=== PATIENT | female | born 1950 | race Caucasian/White ===

== ENCOUNTER → 2017-06-26 | Outpatient (CLI) | payer OTHER, MEDICARE | LOC: FIMAGING 08:35 | PROVIDERS: ATTEND Physician Assistant Surgical | DX: Z98.1 Arthrodesis status (principal); M43.12 Spondylolisthesis, cervical region ==

== ENCOUNTER → 2019-01-13 | Outpatient (CLI) | payer OTHER, MEDICARE | LOC: FIMAGING 07:11 | PROVIDERS: ATTEND Physician Assistant Surgical | DX: M47.892 Other spondylosis, cervical region (principal); M43.22 Fusion of spine, cervical region ==

== ENCOUNTER 2019-01-27 18:29 | Emergency (ER) | payer OTHER, MEDICARE ==
--- NOTE | 2019-01-27 19:28 | EDPHY ---
H & P Time Seen by Provider: 01/27/19 19:08 HPI/ROS: CHIEF COMPLAINT: Headache HISTORY OF PRESENT ILLNESS: Patient is a 68-year-old female with a history of migraine headaches and chronic neck pain who presents to the emergency department with increasing headache after having a CT myelogram today. Patient states that she received a contest. When he tilted the table "somewhat went into my brain."She developed an increased headache. She took a tramadol when she returned home which mildly improved her headache because it had significant nausea. Patient denies any focal weakness or numbness. No fevers or chills. No visual change. REVIEW OF SYSTEMS: 10 systems were reveiwed and are negative with the exception of the elements mentioned in the history of present illness. Past Medical/Surgical History: Includes headache, IBS, GI issues, thyroid disease Smoking Status: Never smoked Physical Exam: Vitals noted GENERAL: Well-appearing, in no acute distress, alert. HEENT: Eyes normal to inspection, normal pharynx, no signs of dehydration. NECK: Normal, supple. RESPIRATORY: Clear to auscultation bilaterally, no rales, rhonchi or wheezing. CVS: Regular rate and rhythm, no rubs, murmurs, or gallops. ABDOMEN: Soft, nontender, nondistended, no organomegaly. BACK: Normal to inspection, no CVA tenderness. SKIN: Normal color, no rash, warm, dry. No pallor. EXTREMITIES: No pedal edema, no calf tenderness, no Homans sign or cords, no joint swelling. NEURO/PSYCH: Higher functions: Alert and Oriented x3. Normal speech and cognition. Normal mood and affect. Cranial nerves: Normal as tested. Cerebellar: Normal as tested. Good finger to nose, good [id number], normal gait. Peripheral exam: Normal motor exam. Normal sensation. Normal reflexes. Constitutional: Initial Vital Signs Temperature (C) 36.4 C 01/27/19 18:35 Heart Rate 74 01/27/19 18:35 Respiratory Rate 18 01/27/19 18:35 Blood Pressure 136/73 H 01/27/19 18:35 O2 Sat (%) 99 01/27/19 18:35 O2 Delivery Mode Room Air Allergies/Adverse Reactions: pneumococcal 7-valent conjugate to [From Prevnar (PF)] Allergy (Severe, Verified 01/27/19 18:35) Swelling/neck,face,throat adhesive Allergy (Verified 01/27/19 18:35) aspirin Allergy (Verified 01/27/19 18:35) baclofen Allergy (Verified 01/27/19 18:35) doxycycline Allergy (Verified 01/27/19 18:35) Tingling of mouth/throat gabapentin [From Neurontin] Allergy (Verified 01/27/19 18:35) levofloxacin [From Levaquin] Allergy (Verified 01/27/19 18:35) metoclopramide HCl [From Reglan] Allergy (Verified 01/27/19 18:35) oxycodone HCl [From Percocet] Allergy (Verified 01/27/19 18:35) pregabalin [From Lyrica] Allergy (Verified 01/27/19 18:35) promethazine [From Phenergan] Allergy (Verified 01/27/19 18:35) Other-Enter Comments Sulfa (Sulfonamide Antibiotics) Allergy (Verified 01/27/19 18:35) Home Medications: Medication Instructions Recorded Amitriptyline HCl [Elavil 10 mg 10 mg PO HS PRN 06/10/15 (*)] Bethanechol [Urecholine (*)] 25 mg PO ACHS 06/10/15 Cholecalciferol Vit D3 [Vitamin D3 2,000 units PO DAILY 06/10/15 2000 units] Dicyclomine [Bentyl 10 MG (*)] 20 mg PO Q6 PRN 06/10/15 Estrogens,Conjugated [Premarin 0.5 ubaldo VG Q3D 06/10/15 Vaginal (*)] Glucosamine/Chondr Ro A Sod 1 each PO DAILY 06/10/15 [Glucosamine-Chondroitin Cap] Levothyroxine Sodium 25 mcg PO DAILY06 06/10/15 Ondansetron Odt [Zofran Odt 4 mg 8 mg PO Q4 PRN 06/10/15 (*)] Polyethylene Glycol 3350 [Miralax 8.5 gm PO DAILY 06/10/15 17 gm (*)] Ranitidine HCl [Zantac] 300 mg PO TID 06/10/15 Sucralfate [Carafate 1 GM (*)] 1 gm PO DAILY PRN 06/10/15 Tramadol HCl 50 mg PO Q6 06/10/15 Vitamin B Complex [B Complex] 1 each PO DAILY 06/10/15 Amox-Clav 875-125 mg Tablet 2 tab PO 01/17/19 Ferosul 325 mg PO DAILY 01/17/19 Medical Decision Making ED Course/Re-evaluation: In the emergency department discussed possible etiologies with the patient. I answered all her questions. IV was placed. Patient was given fentanyl 50 mcg IV and Toradol 15 mg IV for pain. She is given Zofran 4 mg IV for nausea. I discussed the case with Dr. Dayton Chang. He felt the patient did not need further imaging. He felt pain control was more appropriate. I discussed case with Dr. Caal from Neurosurgery. He felt the patient should be treated symptomatically. 2100: I rechecked the patient. She stated "I am feeling so much better."She has minimal headache. She has no focal deficits on repeat exam. Patient was given warnings prior to leaving. She will return with worsening symptoms. She was given a take-home pack of Clinton as well as Zofran. The patient states she has tolerated Clinton in the past Differential Diagnosis: My differential includes but is not limited to headache, migraine, dissection, meningitis - Data Points Medications Given: Discontinued Medications Dexamethasone (Decadron Injection) 10 mg IVP EDNOW ONE Stop: 01/27/19 20:19 Last Admin: 01/27/19 20:21 Dose: 10 mg Fentanyl (Sublimaze) 50 mcg IVP EDNOW ONE Stop: 01/27/19 20:19 Last Admin: 01/27/19 20:21 Dose: 50 mcg Ketorolac Tromethamine (Toradol) 15 mg IVP EDNOW ONE Stop: 01/27/19 20:19 Last Admin: 01/27/19 20:22 Dose: 15 mg Ondansetron HCl (Zofran) 4 mg IVP EDNOW ONE Stop: 01/27/19 20:19 Last Admin: 01/27/19 20:21 Dose: 4 mg Departure - Departure Disposition: Home, Routine, Self-Care Clinical Impression: Headache Qualifiers: Headache type: unspecified Headache chronicity pattern: acute headache Intractability: not intractable Qualified Code(s): R51 - Headache Condition: Fair Instructions: Acute Headache (ED) Additional Instructions: Return with increasing pain, vomiting, fever or any other concerns. Referrals: Asha,Messi W, PA [Primary Care Provider] - 5-7 days, call for appt.
[2019-01-27] MEDS ORDERED: fentaNYL 100 MCG/2 ML INJ IVP ONE (20:18)
[2019-01-27] MEDS ORDERED: ONDANSETRON 4 MG/2 ML VIAL IVP ONE (20:18)
[2019-01-27] MEDS ORDERED: KETOROLAC 15 MG/1 ML SDV IVP ONE (20:18)
[2019-01-27] MEDS ORDERED: DEXAMETHASONE 10 MG/ML VIAL IVP ONE (20:18)
[2019-01-27 20:52] VITALS: BP 119/75
[2019-01-27] MEDS ORDERED: ONDANSETRON 4MG PREPACK#2 BTL TAKEHOME ONE (21:01)
[2019-01-27] MEDS ORDERED: HYDROCOD/APAP 5/325 PREPACK#6 BTL TAKEHOME ONE (21:01)
== END 2019-01-27 21:12 | disposition home or self-care (01) ==
DX: R51 Headache (principal); E07.9 Disorder of thyroid, unspecified; Z86.69 Personal history of other diseases of the nervous system and sense organs
CPT/HCPCS: 96374; 96375; 99284; J1100; J1885; J2405; J3010

== ENCOUNTER → 2019-01-27 | Outpatient (CLI) | payer OTHER, MEDICARE ==
[~2019-01-27] MED LIST: DIAZEPAM 10 MG TAB PO ONE; IOPAMIDOL (ISOVUE-M 300) 15 ML VIAL ONE; LIDOCAINE 1% 300 MG/30 ML SDV ONE
[2019-01-27 08:36] LABS: INR 0.92 (0.83-1.16)
== END ==
LOC: FIMAGING 07:47
PROVIDERS: ATTEND Physician Assistant Surgical
PROC: B02BYZZ Computerized Tomography (CT Scan) of Spinal Cord using Other Contrast (ICD-10-PCS; principal; 2019-01-27)
DX: M50.320 Other cervical disc degeneration, mid-cervical region, unspecified level (principal)
CPT/HCPCS: 62302; 72126; 72240; Q9967

== ENCOUNTER 2019-01-28 22:41 | Inpatient (IN) | payer OTHER, MEDICARE ==
[2019-01-28] MEDS ORDERED: fentaNYL 100 MCG/2 ML INJ IVP ONE (23:12)
[2019-01-28] MEDS ORDERED: NS 500 ML IV ONE (23:12)
[2019-01-28] MEDS ORDERED: KETOROLAC 15 MG/1 ML SDV IVP ONE (23:12)
--- NOTE | 2019-01-28 23:12 | EDPHY ---
H & P Stated Complaint: PERALTA and hearing loss Time Seen by Provider: 01/28/19 22:51 HPI/ROS: CHIEF COMPLAINT: Continued headache HISTORY OF PRESENT ILLNESS: 68-year-old female underwent CT myelogram of the cervical spine yesterday for evaluation of chronic neck pain, subsequently seen in the emergency department post procedure, treated symptomatically and noted improvement symptoms, states that upon leaving the emergency department her symptoms returned. She does note a postural element to her headache, better laying flat, or sitting upright. Denies: Neck pain, peripheral paresthesia, weakness, numbness, gait instability, slurred speech, major minor head or neck trauma or manipulation. REVIEW OF SYSTEMS: 10 systems reviewed and negative with the exception of the elements mentioned in the history of present illness PAST MEDICAL & SURGICAL HISTORY: Chronic neck pain. Recent CT myelogram. SOCIAL HISTORY: Nonsmoker. No drug use. PHYSICAL EXAM (Prior to examination, patient consented to physical exam, hands were washed and my usual and customary physical exam procedures followed) 1) GENERAL: Well-developed, well-nourished, alert and oriented. Appears uncomfortable sitting upright, better when laying flat. 2) HEAD: Normocephalic, atraumatic 3) HEENT: Pupils equal, round, reactive to light bilaterally. Sclera anicteric. 4) NECK: Full range of motion, no meningeal signs. 5) LUNGS: Clear auscultation bilaterally, no wheezes, no rhonchi, no retractions. 6) HEART: Regular rate and rhythm, no murmur, no heave, no gallop. 7) ABDOMEN: No guarding, no rebound, no focal tenderness, 8) MUSCULOSKELETAL: Moving all extremities, no focal areas of tenderness, no obvious trauma. No peripheral edema or discoloration. 9) BACK: No obvious trauma, no visual or palpable abnormality. 10) SKIN: No rash, no petechiae. 11) Psychiatric: Patient is oriented X 3, there is no agitation. 12) NEURO: Awake, alert, and oriented to person, place and time. Answers questions appropriately. There were no obvious focal neurologic abnormalities. No cerebellar dysfunction. Normal steady gait. Upper and lower extremities bilaterally with strength 5 / 5, reflexes 2+. DIFFERENTIAL DIAGNOSIS: In no particular order, including but not limited to subarachnoid hemorrhage, post lumbar puncture headache, migraine headache, tension headache and infectious causes such as meningitis, pharyngitis and sinusitis.. - Personal History Current Tetanus/Diphtheria Vaccine: Yes Current Tetanus Diphtheria and Acellular Pertussis (TDAP): Yes - Medical/Surgical History Hx Asthma: No Hx Chronic Respiratory Disease: No Hx Diabetes: No Hx Cardiac Disease: No Hx Renal Disease: No Hx Cirrhosis: No Hx Alcoholism: No Hx HIV/AIDS: No Hx Splenectomy or Spleen Trauma: No Other PMH: IBS, GI issues, chronic PERALTA, numbness in fingers - Social History Smoking Status: Never smoked Constitutional: Initial Vital Signs Temperature (C) 36.4 C 01/28/19 22:44 Heart Rate 86 01/28/19 22:44 Respiratory Rate 16 01/28/19 22:44 Blood Pressure 126/93 H 01/28/19 22:44 O2 Sat (%) 99 01/28/19 22:44 O2 Delivery Mode Room Air Allergies/Adverse Reactions: pneumococcal 7-valent conjugate to [From Prevnar (PF)] Allergy (Severe, Verified 01/28/19 22:48) Swelling/neck,face,throat adhesive Allergy (Verified 01/29/19 08:08) aspirin Allergy (Verified 01/29/19 08:08) Hives baclofen Allergy (Verified 01/29/19 08:08) Unknown doxycycline Allergy (Verified 01/28/19 22:48) Tingling of mouth/throat gabapentin [From Neurontin] Allergy (Verified 01/29/19 08:08) Other-Enter Comments levofloxacin [From Levaquin] Allergy (Verified 01/29/19 08:08) Vomiting metoclopramide HCl [From Reglan] Allergy (Verified 01/29/19 08:08) Unknown oxycodone HCl [From Percocet] Allergy (Verified 01/29/19 08:08) Vomiting pregabalin [From Lyrica] Allergy (Verified 01/29/19 08:08) Vomiting promethazine [From Phenergan] Allergy (Verified 01/28/19 22:48) Other-Enter Comments Sulfa (Sulfonamide Antibiotics) Allergy (Verified 01/29/19 08:08) Unknown Home Medications: Medication Instructions Recorded Amitriptyline HCl [Elavil 10 mg 10 mg PO HS 06/10/15 (*)] Bethanechol [Urecholine (*)] 25 mg PO QID 06/10/15 Cholecalciferol Vit D3 [Vitamin D3 2,000 units PO DAILY 06/10/15 2000 units] Dicyclomine [Bentyl 10 MG (*)] 20 mg PO QID 06/10/15 Estrogens,Conjugated [Premarin 0.5 ubaldo VG Q3D@06/10/15 Vaginal (*)] Ondansetron Odt [Zofran Odt 4 mg 8 mg PO Q4-6PRN PRN 06/10/15 (*)] Polyethylene Glycol 3350 [Miralax 8.5 gm PO DAILY 06/10/15 17 gm (*)] Ranitidine HCl [Zantac] 300 mg PO BID@08,12 06/10/15 Sucralfate [Carafate 1 GM (*)] 1 gm PO DAILY PRN 06/10/15 Vitamin B Complex [B Complex] 1 each PO HS 06/10/15 Amoxicillin/Clavulanate Pot 875 mg PO AD 01/17/19 [Augmentin 875 MG TAB (*)] Ferrous Sulfate [Ferrous Sulf 325 325 mg PO DAILY 01/17/19 MG (*)] Calcium Carbonate [Tums 500MG (*)] 500 mg PO TIDMEAL PRN 01/29/19 Diclofenac Sodium 1% [Voltaren Gel 1 ubaldo TP QID PRN 01/29/19 (*)] Glucosamine/Chondroitin 1 each PO DAILY 01/29/19 [Glucosamine/Chondroitin (*)] Guar Gum [Benefiber/Nutrisource 1 each PO DAILY 01/29/19 Fiber (*)] Herbals/Supplements -Info Only 1 ea PO DAILY 01/29/19 Levothyroxine [Synthroid 25 mcg 25 mcg PO DAILY06 01/29/19 (*)] Loratadine 10 mg PO DAILY 01/29/19 Mag Hydrox/Aluminum Hyd/Simeth 5 ml PO QID PRN 01/29/19 [Antacid Suspension] Ranitidine HCl [Zantac] 150 mg PO BID@18,21 01/29/19 Simethicone [Phazyme] 180 mg PO BID PRN 01/29/19 Tears/Dextran 70/Hypromellose 1 drop EACHEYE Q2 PRN 01/29/19 [Natural Balance Tears (*)] diphenhydrAMINE [Benadryl 50 MG 50 mg PO BID PRN 01/29/19 (*)] traMADol [Ultram 50 mg (*)] 50 mg PO Q4 PRN #20 tab 01/30/19 Medical Decision Making ED Course/Re-evaluation: 11:20 p.m.: Consultation with [facility] who informs me at this time that the contrast material can cause significant pain some individuals. In addition given the postural component of her pain, he recommended admission to the hospital, keeping the patient flag, continued hydration with oral caffeine, if the patient was not improved by the morning to consider blood patching. The patient is agreeable with this noting that she has been "miserable" at home and has had no relief of symptoms with oral Zofran, oral oxycodone, oral tramadol. 11:24 p.m.: Consultation with hospitalist who agrees to admit patient - Data Points Laboratory Results: Laboratory Results 01/28/19 23:05 01/28/19 23:05 Medications Given: Discontinued Medications Amitriptyline HCl (Elavil) 10 mg PO HS [facility] Stop: 07/28/19 20:59 Last Admin: 01/29/19 21:48 Dose: 10 mg Bethanechol Chloride (Urecholine) 25 mg PO QID [facility] Stop: 07/28/19 15:59 Last Admin: 01/30/19 11:18 Dose: 25 mg Bethanechol Chloride (Urecholine) 25 mg PO ONCE ONE Stop: 01/29/19 13:16 Last Admin: 01/29/19 13:18 Dose: 25 mg Cetirizine HCl (Zyrtec) 10 mg PO DAILY [facility] Stop: 07/29/19 08:59 Last Admin: 01/30/19 08:38 Dose: 10 mg Cholecalciferol (Vitamin D) 2,000 units PO DAILY [facility] Stop: 07/29/19 08:59 Last Admin: 01/30/19 08:38 Dose: 2,000 units Dicyclomine HCl (Bentyl) 20 mg PO QID [facility] Stop: 07/28/19 15:59 Last Admin: 01/30/19 11:18 Dose: 20 mg Dicyclomine HCl (Bentyl) 20 mg PO ONCE ONE Stop: 01/29/19 13:16 Last Admin: 01/29/19 13:18 Dose: 20 mg Estrogens Conjugated (Premarin Vaginal) 1 gm VG Q3D@21 [facility] Stop: 07/28/19 20:59 Last Admin: 01/29/19 22:26 Dose: Not Given Famotidine (Pepcid) 20 mg PO BID@1800,2100 [facility] Stop: 07/28/19 17:59 Last Admin: 01/29/19 21:48 Dose: 20 mg Famotidine (Pepcid) 40 mg PO BID@0800,1200 [facility] Stop: 07/28/19 15:44 Last Admin: 01/30/19 10:22 Dose: 40 mg Fentanyl (Sublimaze) 50 mcg IVP EDNOW ONE Stop: 01/28/19 23:13 Last Admin: 01/28/19 23:20 Dose: 50 mcg Ferrous Sulfate (Ferrous Sulfate) 325 mg PO DAILY [facility] Stop: 07/29/19 08:59 Last Admin: 01/30/19 08:38 Dose: 325 mg Glucosamine/Chondroitin (Glucosamine/Chondroitin) 1 each PO DAILY [facility] Stop: 07/29/19 08:59 Last Admin: 01/30/19 08:38 Dose: 1 each Guar Gum (Benefiber/Nutrisource Fiber) 1 each PO DAILY [facility] Stop: 07/29/19 08:59 Last Admin: 01/30/19 08:39 Dose: 1 each Sodium Chloride (Ns) 500 mls @ 0 mls/hr IV ONCE ONE PRN Reason: Wide Open Stop: 01/28/19 23:13 Last Admin: 01/28/19 23:20 Dose: 500 mls Sodium Chloride (Ns) 1,000 mls @ 75 mls/hr IV CONT [facility] Stop: 07/27/19 23:29 Last Admin: 01/29/19 01:39 Dose: 1,000 mls Ketorolac Tromethamine (Toradol) 15 mg IVP EDNOW ONE Stop: 01/28/19 23:13 Last Admin: 01/28/19 23:21 Dose: 15 mg Ketorolac Tromethamine (Toradol) 15 mg IVP ONCE ONE Stop: 01/30/19 11:01 Last Admin: 01/30/19 11:16 Dose: 15 mg Levothyroxine Sodium (Synthroid) 25 mcg PO DAILY06 [facility] Stop: 07/29/19 05:59 Last Admin: 01/30/19 06:11 Dose: 25 mcg Lorazepam (Ativan) 0.5 mg PO Q8HRS PRN PRN Reason: Spasms Stop: 07/27/19 23:22 Last Admin: 01/29/19 01:37 Dose: 0.5 mg Ondansetron HCl (Zofran Odt) 4 mg PO Q4HRS PRN PRN Reason: Nausea/Vomiting, Use 1st Stop: 07/27/19 23:22 Last Admin: 01/29/19 09:30 Dose: 4 mg Ondansetron HCl (Zofran Odt) 8 mg PO Q4HRS PRN PRN Reason: Nausea/Vomiting, Use 1st Stop: 07/28/19 12:24 Last Admin: 01/30/19 04:29 Dose: 8 mg Polyethylene Glycol (Miralax) 8.5 gm PO DAILY [facility] Stop: 07/29/19 08:59 Last Admin: 01/30/19 08:39 Dose: 8.5 gm Tramadol HCl (Ultram) 50 mg PO Q6HRS PRN PRN Reason: Pain, Moderate Able to Take PO Stop: 07/28/19 01:46 Last Admin: 01/29/19 09:59 Dose: 50 mg Tramadol HCl (Ultram) 50 mg PO Q4 PRN PRN Reason: Pain, Moderate Stop: 07/28/19 12:24 Last Admin: 01/30/19 13:34 Dose: 50 mg Vitamin B Complex (Vitamin B Complex) 1 ea PO HS [facility] Stop: 07/28/19 20:59 Last Admin: 01/29/19 21:48 Dose: 1 ea Departure - Departure Disposition: [facility] Acute Clinical Impression: Post lumbar puncture headache Condition: Fair
[2019-01-28] MEDS ORDERED: LORazepam 0.5 MG TAB PO PRN (23:23)
[2019-01-28] MEDS ORDERED: ONDANSETRON 4 MG/2 ML VIAL IVP PRN (23:23)
[2019-01-28] MEDS ORDERED: ACETAMINOPHEN 325 MG TAB PO PRN (23:23)
[2019-01-28] MEDS ORDERED: NS 1,000 ML IV SCH (23:30)
[2019-01-28 23:33] LABS: PLATELET COUNT 323 10^3/uL (150-400)
[2019-01-28 23:44] LABS: INR 0.94 (0.83-1.16); PROTIME(PATIENT) 12.2 SEC (12.0-15.0)
[2019-01-29] MEDS: ONDANSETRON DISINTEGRATING 4 MG TAB PO PRN ×3 (01:37→16:59)
[2019-01-29] MEDS ORDERED: traMADol 50 MG TAB PO PRN (01:47)
--- NOTE | 2019-01-29 01:53 | PDGENHP ---
History and Physical - Chief Complaint Headache, nausea - History of Present Illness Source-patient by . EMR is reviewed case discussed with ED provider HPI-this is a very pleasant 68-year-old female with past medical history significant for IBS, migraine headaches cervical radiculopathy status post C4-5 , C5-6 ACDF, chronic pain presents emergency department this evening with unable to sit still headache. Yesterday patient underwent is CT myelogram to either evaluate for stenosis based on outpatient late films had been seen by neurosurgery at Dr. Whitten's office with complaints of per on the of pain, suboccipital headache and hand numbness. Patient did struggle slightly during the study as she reported she had some discomfort with infusion of the contrast. He did improve and was discharged home. She returned to the on 01/17 with complaint of significantly worsened headache. She was given some pain medications and antiemetic improvement of her symptoms. Over the course of the day agent reports that she continued to have nausea dry heaving. She also noted that she had denied hearing bilaterally. She denied any fevers or chills. No acute onset of numbness or tingling her arm hands. If increased pain she was having he will bowel symptoms with alternating diarrhea and constipation symptoms. Patient works that her symptoms are improved she is lying flat and worsened when she attempts to move. Additionally patient states that she has a history of multiple epidural steroid injections remotely. She did require a blood patch following one of these that she is aware of which did not help her symptoms which did eventually resolve after 6 months. History Information - Allergies/Home Medication List Allergies/Adverse Reactions: pneumococcal 7-valent conjugate to [From Prevnar (PF)] Allergy (Severe, Verified 01/28/19 22:48) Swelling/neck,face,throat adhesive Allergy (Verified 01/28/19 22:48) aspirin Allergy (Verified 01/28/19 22:48) baclofen Allergy (Verified 01/28/19 22:48) doxycycline Allergy (Verified 01/28/19 22:48) Tingling of mouth/throat gabapentin [From Neurontin] Allergy (Verified 01/28/19 22:48) levofloxacin [From Levaquin] Allergy (Verified 01/28/19 22:48) metoclopramide HCl [From Reglan] Allergy (Verified 01/28/19 22:48) oxycodone HCl [From Percocet] Allergy (Verified 01/28/19 22:48) pregabalin [From Lyrica] Allergy (Verified 01/28/19 22:48) promethazine [From Phenergan] Allergy (Verified 01/28/19 22:48) Other-Enter Comments Sulfa (Sulfonamide Antibiotics) Allergy (Verified 01/28/19 22:48) Home Medications: Amitriptyline HCl [Elavil 10 mg (*)] 10 mg PO HS PRN 06/10/15 [Last Taken 20:00] Bethanechol [Urecholine (*)] 25 mg PO ACHS 06/10/15 [Last Taken 06/16/15 20:00] Cholecalciferol Vit D3 [Vitamin D3 2000 units] 2,000 units PO DAILY 06/10/15 [ Last Taken 06/10/15] Dicyclomine [Bentyl 10 MG (*)] 20 mg PO Q6 PRN 06/10/15 [Last Taken 3 Days Ago ~ 06/14/15] Estrogens,Conjugated [Premarin Vaginal (*)] 0.5 ubaldo VG Q3D 06/10/15 [Last Taken 3 Days Ago ~06/14/15] Glucosamine/Chondr Ro A Sod [Glucosamine-Chondroitin Cap] 1 each PO DAILY [Last Taken 06/10/15] Levothyroxine Sodium 25 mcg PO DAILY06 06/10/15 [Last Taken 06/16/15 07:00] Ondansetron Odt [Zofran Odt 4 mg (*)] 8 mg PO Q4 PRN 06/10/15 [Last Taken ] Polyethylene Glycol 3350 [Miralax 17 gm (*)] 8.5 gm PO DAILY 06/10/15 [Last Taken 06/16/15 07:00] Ranitidine HCl [Zantac] 300 mg PO TID 06/10/15 [Last Taken 06/16/15 07:00] Sucralfate [Carafate 1 GM (*)] 1 gm PO DAILY PRN 06/10/15 [Last Taken 1 Week Ago ~06/10/15] Tramadol HCl 50 mg PO Q6 06/10/15 [Last Taken 06/16/15 07:00] Vitamin B Complex [B Complex] 1 each PO DAILY 06/10/15 [Last Taken 06/10/15] Amox-Clav 875-125 mg Tablet 2 tab PO 01/17/19 [Last Taken Unknown] Ferosul 325 mg PO DAILY 01/17/19 [Last Taken Unknown] I have personally reviewed and updated: family history, medical history, social history, surgical history - Past Medical History Additional medical history: IBS. Migraine headaches. Cervical radiculopathy. Chronic pain in neck and abdomen. History shingles. Constipation - Surgical History Additional surgical history: Ovarian cystectomy with appendectomy. Hysterectomy. Left lower rib removed. Bilateral knee scope arthroscopies. Bladder and rectal surgery. Vein stripping. Niessen fundoplication and a revision. Cholecystectomy. Bilateral tear duct surgery. Right breast biopsy. Left foot ORIF with removal of hardware. VALENTE x3. Cataract extraction with lens placement. Left thumb surgery. C4-5, C5-6 ACDF. Spine stimulator which is currently turned off per patient - Family History Additional family history: Mother-had cancer, thyroid and breast. Father-CHF - Social History Smoking Status: Never smoked Alcohol Use: None Drug Use: None Additional social history: Patient is and typically lives with her in [place]. They are currently staying with their son locally as her is recovering from pneumonia. Cor status-full. Patient reports that she has advanced directives in place. Review of Systems Review of Systems: ROS: 10pt was reviewed & negative except for what was stated in HPI & below Constitutional: Denies: chills, fever, weakness EENMT: Reports: no symptoms Cardiac: Reports: no symptoms Respiratory: Reports: no symptoms Gastrointestinal: Reports: abdominal pain (cramping), constipation, diarrhea, nausea. Denies: vomitting, abdominal distention Genitourinary: Reports: no symptoms Muscolosketal: Reports: no symptoms Skin: Reports: no symptoms Neurological: Reports: no symptoms, numbness (No current numbness but history of numbness tingling in right 3rd 4th and 5th finger.) Hematologic/Lymphatic: Reports: no symptoms Physical Exam Physical Exam: Selected Entries 01/28/19 22:44 Blood Pressure Automatic Method Heart Rate 86 Respiratory 16 Rate O2 Sat (%) 99 Temperature (C) 36.4 C Blood Pressure 126/93 H Mean Arterial 104 H Pressure (MAP) O2 Delivery Room Air Mode Temperature Oral Source Temp Pulse Resp BP Pulse Ox 36.4 C 84 16 119/65 94 01/29/19 00:25 01/29/19 00:25 01/29/19 00:25 01/29/19 00:25 01/29/19 00:25 Constitutional: no apparent distress, uncomfortable, other (NAD. Patient is lying very still on the bed. She does cradle her left forehead with her right hand intermittently. Son is at bedside.) Eyes: PERRL (Lens reflex appreciated bilaterally), anicteric sclera, EOMI, No scleral injection Ears, Nose, Mouth, Throat: moist mucous membranes, no oral mucosal ulcers, other (Patient reports difficulty with her hearing however she was able to hear me for the most part during the interview with me standing approximately 3-4 feet away.), No oral ulcer Cardiovascular: regular rate and rhythym, no murmur, rub, or gallop, pulses symmetric bilaterally, No systolic murmur, No edema Peripheral Pulses: 1+: dorsalis-pedis (R), dorsalis-pedis (L) Respiratory: no respiratory distress, no rales or rhonchi, clear to auscultation , No reduced air movement, No inspiratory crackles Gastrointestinal: normoactive bowel sounds, soft, non-tender abdomen, no palpable masses, No tenderness, No ascites, No guarding, No rebound, No distension Genitourinary: no bladder tenderness, No cantrell in urethra Skin: warm, normal color, no rashes or abrasions Musculoskeletal: generalized weakness (Patient lays still supine on the gurney.) , No pain with ROM Neurologic: AAOx3, sensation intact bilaterally, other (Grossly nonfocal exam. Patient does move all extremities while lying in bed.), No facial droop Psychiatric: interacting appropriately, not anxious, not encephalopathic, thought process linear, No depressed Lab Data & Imaging Review 01/28/19 23:05 01/28/19 23:05 WBC 7.83 10^3/uL (3.80-9.50) 01/28/19 23:05 RBC 4.18 10^6/uL (4.18-5.33) 01/28/19 23:05 Hgb 12.9 g/dL (12.6-16.3) 01/28/19 23:05 Hct 37.4 % (38.0-47.0) L 01/28/19 23:05 MCV 89.5 fL (81.5-99.8) 01/28/19 23:05 MCH 30.9 pg (27.9-34.1) 01/28/19 23:05 MCHC 34.5 g/dL (32.4-36.7) 01/28/19 23:05 RDW 13.0 % (11.5-15.2) 01/28/19 23:05 Plt Count 323 10^3/uL (150-400) 01/28/19 23:05 MPV 9.5 fL (8.7-11.7) 01/28/19 23:05 Neut % (Auto) 55.2 % (39.3-74.2) 01/28/19 23:05 Lymph % (Auto) 33.0 % (15.0-45.0) 01/28/19 23:05 [place] % (Auto) 10.0 % (4.5-13.0) 01/28/19 23:05 Eos % (Auto) 1.0 % (0.6-7.6) 01/28/19 23:05 Baso % (Auto) 0.5 % (0.3-1.7) 01/28/19 23:05 Nucleat RBC Rel Count 0.0 % (0.0-0.2) 01/28/19 23:05 Absolute Neuts (auto) 4.33 10^3/uL (1.70-6.50) 01/28/19 23:05 Absolute Lymphs (auto) 2.58 10^3/uL (1.00-3.00) 01/28/19 23:05 Absolute Monos (auto) 0.78 10^3/uL (0.30-0.80) 01/28/19 23:05 Absolute Eos (auto) 0.08 10^3/uL (0.03-0.40) 01/28/19 23:05 Absolute Basos (auto) 0.04 10^3/uL (0.02-0.10) 01/28/19 23:05 Absolute Nucleated RBC 0.00 10^3/uL (0-0.01) 01/28/19 23:05 Immature Gran % 0.3 % (0.0-1.1) 01/28/19 23:05 Immature Gran # 0.02 10^3/uL (0.00-0.10) 01/28/19 23:05 PT 12.2 SEC (12.0-15.0) 01/28/19 23:05 INR 0.94 (0.83-1.16) 01/28/19 23:05 APTT 28.8 SEC (23.0-38.0) 01/28/19 23:05 Sodium 134 mEq/L (135-145) L 01/28/19 23:05 Potassium 4.0 mEq/L (3.5-5.2) 01/28/19 23:05 Chloride 102 mEq/L (97-110) 01/28/19 23:05 Carbon Dioxide 22 mEq/l (22-31) 01/28/19 23:05 Anion Gap 10 mEq/L (6-14) 01/28/19 23:05 BUN 7 mg/dL (7-23) 01/28/19 23:05 Creatinine 0.8 mg/dL (0.6-1.0) 01/28/19 23:05 Estimated GFR > 60 01/28/19 23:05 Glucose 98 mg/dL (70-100) 01/28/19 23:05 Calcium 9.5 mg/dL (8.5-10.4) 01/28/19 23:05 Imaging Review: 01/27/2019 CT Myelogram of the Cervical Spine (With Intrathecal Contrast) (With Multiplanar Reconstructions) Clinical Indications: Evaluate for source of neck pain, right numbness. M43.22 fusion of spine, cervical region. M50.320 Other cervical disk degeneration, mid-cervical region, unspecified level. Technique: Thinly collimated multidetector helical CT imaging of the cervical spine was reviewed in multiple planes. Study performed after lumbar myelography. Multiplanar reconstructions reviewed on [employer] workstation and performed to better evaluate alignment. Dose reduction techniques were utilized. Findings: Myelogram contrast throughout the cervical subarachnoid space. No cervical compression fractures or destructive osseous lesions. Anterior cervical fusion plate and screws at C4, C5 and C6 with hardware appearing intact. Previous C4-C5 and C5-C6 diskectomies with bony fusion. No evidence of odontoid fracture. No cervical compression fracture or destructive osseous lesions. Spinous processes are intact. No craniocervical stenosis. Contrast in the subarachnoid space without evidence of cord compression or significant central canal stenosis. No associated cord atrophy. C2-C3: Mild right facet arthropathy without disk herniation or stenosis. C3-C4: No disk herniation or stenosis. C4-C5: Previous anterior cervical diskectomy and fusion. No central canal or neural foraminal stenosis. C5-C6: Previous anterior cervical diskectomy and fusion without central canal stenosis or neural foraminal stenosis. C6-C7: Moderate degenerative disk disease with dorsal disk/osteophyte complex, bilateral uncovertebral osteophytes, resulting in mild to moderate bilateral neural foraminal stenosis and mild central canal stenosis without cord compression. C7-T1: Moderate right facet arthropathy and mild left facet arthropathy. No disk herniation or stenosis. T1-T2: No disk herniation or stenosis. T2-T3: No disk herniation or stenosis. Impression: 1. Previous anterior cervical diskectomies and fusion at C4-C5 and C5-C6 without stenosis. 2. C6-C7: Mild central canal stenosis and mild to moderate bilateral neural foraminal stenosis, secondary to moderate degenerative disk disease with dorsal disk/osteophyte complex and bilateral uncovertebral osteophytes. 3. Please see above findings. Dictated By: Emile Mcnally Assessment & Plan Assessment: this is a very pleasant 68-year-old female with past medical history significant for IBS, migraine headaches cervical radiculopathy status post C4-5 , C5-6 ACDF, chronic pain presents emergency department this evening with unable to sit still headache. #Post lumbar puncture headache (Acute) - patient reports that her symptoms are significantly improved and she is lying flat. Will plan to have the patient rest overnight. If she continues have severe symptoms additional discussion with anesthesiology or IR for blood patch. P.r.n. Medications as noted below. #Chronic back pain - with history of spinal stimulator which has been turned off. Status post fentanyl, Toradol in the ED. P.r.n. Tramadol, Tylenol and lorazepam p.r.n. #Nausea - likely secondary to increased pain and headache. Improved with Zofran. FEN - IV fluids overnight for some gentle hydration. Electrolyte monitoring replacement if needed. Diet as tolerated. PPX-SCDs. Holding anticoagulation anticipating short hospital stay and possible need for blood patch. Cor status-full Disposition-patient admitted observation status on med surge floor for additional pain control and reassessment in the morning for likely LP headache.
[2019-01-29] MEDS ORDERED: diphenhydrAMINE 50 MG CAP PO PRN (12:25)
[2019-01-29] MEDS ORDERED: CALCIUM CARBONATE 500 MG CHEWABLE TAB PO PRN (12:25)
[2019-01-29] MEDS ORDERED: SIMETHICONE 180 MG PO PRN (12:25)
[2019-01-29] MEDS ORDERED: TEARS/DEXTRAN 70/HYPROMELLOSE 15 ML OPHT.BTL EACHEYE PRN (12:25)
[2019-01-29] MEDS ORDERED: DICLOFENAC SODIUM 1% 100 GM GEL TP PRN (12:25)
[2019-01-29] MEDS ORDERED: SUCRALFATE 1 GM TAB PO PRN (12:25)
--- NOTE | 2019-01-29 13:03 | HOSPPROG ---
Hospitalist Progress Note Assessment/Plan: 68 yo F w c spine disease here w refractory postural PERALTA post CT myelogram PERALTA: likely post LP PERALTA anesthesiology to see for blood patch continue supportive care c spine diease: neurosurgery follow up back pain: chronic proph: [facility] f staying past tomorrow dispo: obs; may not be able to be dc'd today Subjective: case d/w dr campbell. PERALTA no better unless lying flat Objective: Vital Signs Temp Pulse Resp BP Pulse Ox 36.6 C 79 18 101/63 93 01/29/19 07:49 01/29/19 07:49 01/29/19 07:49 01/29/19 07:49 01/29/19 07:49 01/28/19 01/29/19 01/30/19 05:59 05:59 05:59 Intake Total 500 450 Balance 500 450 PT 12.2 SEC (12.0-15.0) 01/28/19 23:05 INR 0.94 (0.83-1.16) 01/28/19 23:05 - Physical Exam Constitutional: no apparent distress, appears nourished Eyes: PERRL, anicteric sclera Ears, Nose, Mouth, Throat: moist mucous membranes, hearing normal Cardiovascular: regular rate and rhythym, no murmur, rub, or gallop Respiratory: no respiratory distress, no rales or rhonchi Gastrointestinal: normoactive bowel sounds, soft, non-tender abdomen Genitourinary: no bladder fullness, No cantrell in urethra Skin: warm, normal color Musculoskeletal: full muscle strength Neurologic: AAOx3, sensation intact bilaterally Psychiatric: interacting appropriately, not anxious ICD10 Worksheet Patient Problems: Problems Problem Status Onset Post lumbar puncture headache Acute Cervical stenosis of spinal canal Acute
[2019-01-29] MEDS ORDERED: BETHANECHOL 25 MG TAB PO ONE (13:15)
[2019-01-29] MEDS ORDERED: DICYCLOMINE 10 MG CAP PO ONE (13:15)
[2019-01-29] MEDS ORDERED: MAG HYDROX/AL HYDROX/SIMETH 30 ML UDCUP PO PRN (13:45)
[2019-01-29] MEDS ORDERED: SIMETHICONE 80 MG TAB CHEW PO PRN (15:00)
--- NOTE | 2019-01-29 15:12 | ASMTCMCOM ---
CM Note CM Note Notes: 01/29/2019 Case Management Note Discussed pt in rounds. Pt admitted for PERALTA after lumbar puncture. Met w/pt to discuss d/c needs. Pt lives in private home with her Will [phone] in [place], [place] [facility], [place] [facility]. Pt stopped driving in December d/t neck pain, drives pt to appointments or the grocery. Pt was independent with ADL's prior to admission. Pt has not needed home care or a SNF rehab stay in the past. Pt PCP is Dr. Demetrius Alex. Pt attends outpatient PT regularly at [facility] in [place]. Case Management d/c poc: independent with follow up as directed. Case Management available if needs change. Date Signed: 01/29/2019 03:10 PM Electronically Signed By:Sherron Keen RN
[2019-01-29] MEDS ORDERED: FAMOTIDINE 20 MG TAB ONE (15:42)
[2019-01-29] MEDS ORDERED: POLYETHYLENE GLYCOL 3350 17 GM PKT ONE (15:42)
[2019-01-29] MEDS: POLYETHYLENE GLYCOL 3350 17 GM PKT PO SCH (15:44)
[2019-01-29] MEDS: BETHANECHOL 25 MG TAB PO SCH ×2 (15:45→21:47)
[2019-01-29] MEDS: FAMOTIDINE 20 MG TAB PO SCH ×3 (15:45→21:48)
[2019-01-29] MEDS: DICYCLOMINE 10 MG CAP PO SCH ×2 (15:46→21:48)
[2019-01-29] MEDS ORDERED: HYDROmorphONE/DILAUDID 1 MG/ML INJ IVP PRN (16:18)
--- NOTE | 2019-01-29 16:55 | PDPAINCON ---
Pain Management Consultation Patient referred by : Phuc - Subjective Pain at rest (/10): 4 Pain is: high, but manageable Side effects include: No drowsy, No itchiness, No nausea, No nausea/vomiting, No rash Activity: able to ambulate - Objective Vital signs: stable - Assessment/Plan Additional comments: Pt seen and examined. Consulation question was- suitability for epidural blood patch to alleviate PERALTA. PERALTA is reported to be best when laying flat on her back, worse when laying on her side. When she sits up her PERALTA remains the same, no worse. She reports that the PERALTA was at its worst immediately after receiving intrathecal contrast and particularly when she was placed in a trendelenberg position. It has been slowly improving over the next days. Patient presentation is inconsistent with a post-dural puncture PERALTA, would not recommend epidural blood patch at this time. Thank you for this interesting consult, please don't hesitate to contact the [facility] if there are any further questions or concerns.
[2019-01-29] MEDS: traMADol 50 MG TAB PO PRN ×2 (17:00→21:48)
[2019-01-29] MEDS ORDERED: AMITRIPTYLINE HCL 10 MG TAB PO SCH (21:00)
[2019-01-29] MEDS ORDERED: VITAMIN B COMPLEX 1 EA CAP/TAB PO SCH (21:00)
[2019-01-29] MEDS ORDERED: ESTROGENS,CONJUGATED 30 GM CRTUBE VG SCH (21:00)
[2019-01-30] MEDS: ONDANSETRON DISINTEGRATING 4 MG TAB PO PRN (04:29)
[2019-01-30 04:30] VITALS: BP 115/62
[2019-01-30] MEDS: traMADol 50 MG TAB PO PRN ×2 (04:30→13:34)
[2019-01-30] MEDS ORDERED: LEVOTHYROXINE 25 MCG TAB PO SCH (06:00)
[2019-01-30] MEDS: BETHANECHOL 25 MG TAB PO SCH ×2 (06:11→11:18)
[2019-01-30] MEDS: DICYCLOMINE 10 MG CAP PO SCH ×2 (06:11→11:18)
[2019-01-30] MEDS: POLYETHYLENE GLYCOL 3350 17 GM PKT PO SCH (08:39)
[2019-01-30] MEDS ORDERED: CETIRIZINE 10 MG TAB PO SCH (09:00)
[2019-01-30] MEDS ORDERED: BENEFIBER/NUTRISOURCE FIBER PKT 1 EACH PO SCH (09:00)
[2019-01-30] MEDS ORDERED: FERROUS SULFATE 325 MG TAB PO SCH (09:00)
[2019-01-30] MEDS ORDERED: Herbals/Supplements -Info Only PO SCH (09:00)
[2019-01-30] MEDS ORDERED: GLUCOSAMINE/CHONDROITIN CAP PO SCH (09:00)
[2019-01-30] MEDS ORDERED: CHOLECALCIFEROL VIT D3 1,000 UNITS TAB PO SCH (09:00)
--- NOTE | 2019-01-30 09:54 | PDMN ---
Medical Necessity Medical necessity: Change to IP, as of 01/29/19, per MD & MCG [id number]; los >2 mn of headache (7/10 pain) s/p lumbar puncture; requiring further monitoring, anesthesiology consult w/possible epidural blood patch & IV narcotics
[2019-01-30] MEDS: FAMOTIDINE 20 MG TAB PO SCH (10:22)
[2019-01-30] MEDS ORDERED: KETOROLAC 15 MG/1 ML SDV IVP ONE (11:00)
--- NOTE | 2019-01-30 13:09 | HOSPPROG ---
Hospitalist Progress Note Assessment/Plan: 68 yo F w c spine disease here w refractory postural PERALTA post CT myelogram PERALTA: likely post LP PERALTA anesthesiology to see for blood patch continue supportive care c spine disease: neurosurgery follow up back pain: chronic proph: [facility] staying past tomorrow dispo: home today > 30 minutes Subjective: PERALTA improved Objective: Vital Signs Temp Pulse Resp BP Pulse Ox 36.6 C 83 18 115/62 94 01/30/19 06:55 01/30/19 06:55 01/30/19 06:55 01/30/19 06:55 01/30/19 06:55 01/29/19 01/30/19 01/31/19 05:59 05:59 05:59 Intake Total 1250 Balance 1250 PT 12.2 SEC (12.0-15.0) 01/28/19 23:05 INR 0.94 (0.83-1.16) 01/28/19 23:05 - Physical Exam Constitutional: no apparent distress, appears nourished Eyes: PERRL, anicteric sclera Ears, Nose, Mouth, Throat: moist mucous membranes, hearing normal Cardiovascular: regular rate and rhythym, no murmur, rub, or gallop Respiratory: no respiratory distress, no rales or rhonchi Gastrointestinal: normoactive bowel sounds, soft, non-tender abdomen Genitourinary: No cantrell in urethra Skin: warm, normal color Musculoskeletal: full muscle strength Neurologic: AAOx3 ICD10 Worksheet Patient Problems: Problems Problem Status Onset Post lumbar puncture headache Acute Cervical stenosis of spinal canal Acute
--- NOTE | 2019-01-30 13:25 | GDS ---
[f rep st] DISCHARGE SUMMARY DISCHARGE DIAGNOSES: 1. Headache, possible post lumbar puncture headache. 2. Cervical spine disease. 3. Irritable bowel syndrome. 4. Migraine headaches. 5. Chronic pain in neck. Please see admission history and physical by Dr. Yasmeen Patel. The patient presented with a headache following a CT myelogram. She is actually from [place] and was here to see Dr. Lor gong to get the imaging done. She had a nonfocal neurologic exam, was afebrile without meningeal signs . She was managed conservatively with oral medicines. Ultimately, received some Toradol and tramado l with improvement in her symptoms. She was seen by anesthesia for the possible institution of a blo od patch. However, they felt it was not consistent with a post LP headache, so it was not done. She is improved today. Discharged home with a limited prescription for tramadol. /[id number]/MODL
--- NOTE | 2019-01-30 14:02 | ASDISCHSUM ---
Discharge Information Plan Status:Home with No Needs Medically Cleared to Leave:01/30/2019 Discharge Date:01/30/2019 CM D/C Disposition:Home, Routine, Self-Care ADT D/C Disposition: Projected Discharge Date:01/30/2019 Transportation at D/C:Family Discharge Delay Reason: Follow-Up Date:01/30/2019 Discharge Slot: Final Diagnosis: Placement Information Patient Contact Information Contact Name:KASSY Relationship: Address:[address] City:[place] Alternate Phone: [facility]/Zip Code:[place] [address] Email: Financial Information Financial Class:Medicare Primary Plan Desc:MEDICARE INPATIENT Primary Plan Number:[id number] Secondary Plan Desc:[employer]/MDR SUPPLEMENT Secondary Plan Number:[id number] Assessment Information LACE LACE Length of stay for Answers: Less than 1 day current admission Acuity / Level of Answers: No Care: Did the patient have an inpatient admission? Comorbidities - select Answers: Opioid dependence all that apply / Chronic pain Other Notes: IBS # of Emergency department Answers: 1-2 visits in the last 6 months Score: 6 Date Signed: 01/30/2019 01:59 PM Electronically Signed By:Sherron Keen RN [facility] CM Progress Note CM Note CM Note Notes: 01/29/2019 Case Management Note Discussed pt in rounds. Pt admitted for PERALTA after lumbar puncture. Met w/pt to discuss d/c needs. Pt lives in private home with her Will [phone] in [place], [place] [facility] Pt stopped driving in December d/t neck pain, drives pt to appointments or the grocery. Pt was independent with ADL's prior to admission. Pt has not needed home care or a SNF rehab stay in the past. Pt PCP is Dr. Demetrius Alex. Pt attends outpatient PT regularly at [facility] in [place]. Case Management d/c poc: independent with follow up as directed. Case Management available if needs change. Date Signed: 01/29/2019 03:10 PM Electronically Signed By:Sherron Keen RN Case Management Discharge Plan Note Case Management Discharge Discharge Order Complete? Answers: Yes Patient to Obtain Answers: via Family Medications Transportation Arranged Answers: Family/Friends Discharge Comments Notes: 01/30/2019 Case Management Note Pt to discharge independent with follow up as directed. Date Signed: 01/30/2019 02:00 PM Electronically Signed By:Sherron Keen RN Intervention Information Intervention Type:*KURTZ-Signed Date of Service:01/29/2019 10:27 AM Patient Type:Observation Staff Member:Ivy Patel Hours: Discipline: Severity: Comment:
[2019-02-04] MEDS ORDERED: AMOXICILLIN/CLAVULANATE POT 875/125 MG TAB PO SCH (09:00)
== END 2019-01-30 14:15 | disposition home or self-care (01) | DRG 103 ==
LOC: F2W 01-29 00:23 → OBSVTOIN 01-29 16:20
PROVIDERS: ADMIT Family Medicine; ATTEND Family Medicine
DX: G97.1 Other reaction to spinal and lumbar puncture (principal); M54.2 Cervicalgia; Z98.1 Arthrodesis status; K58.9 Irritable bowel syndrome, unspecified; Z96.89 Presence of other specified functional implants
CPT/HCPCS: 96374; G0378; J1885; J3010